=== PATIENT | female | born 1970 | race Caucasian/White ===

== ENCOUNTER 2022-05-10 18:51 | Emergency (ER) | payer OTHER ==
[~2022-05-10] VITALS: Ht 152.4 cm; Wt 62.3 kg
[2022-05-10 21:20] VITALS: BP 145/83
== END 2022-05-10 21:25 | disposition home or self-care (01) ==
LOC: ER 18:52
DX: M79.604 Pain in right leg (principal); Z91.041 Radiographic dye allergy status
CPT/HCPCS: 93971; 99284